=== PATIENT | female | born 1990 | race Caucasian/White ===

== ENCOUNTER 2024-03-09 19:22 | Emergency (ER) | payer MEDICAID, SELFPAY ==
[2024-03-09] VITALS (9 sets, daily range): BP systolic 123–140; BP diastolic 73–75; PULSE 89–115; RESP 15–18; TEMP 36.9; O2SAT 96–98; BMI 26.6
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
[2024-03-09] MEDS: ondansetron 2 mg/ML SDV 2 mL 4 MG IVP (19:54)
[2024-03-09] MEDS: HYDROmorphone 1 mg/mL INJ 1 mL IVP ×2 (19:55→22:08)
[2024-03-09] MEDS: sodium chloride 0.9% 1,000 ML 999 ML IV (19:56)
[2024-03-09 20:15] LABS: INR 1.07 (0.8-1.2); Partial Thromboplastin Time 22.4 SECONDS (23.9-36.7)
[2024-03-09 20:20] LABS: HCG, Serum Qual Negative (Negative)
[2024-03-09 20:21] LABS: Alanine Aminotransferase 30 U/L (0-33); Albumin Level 4.2 g/dL (3.5-5.2); Alcohol Level 74 mg/dL (0-10); Alkaline Phosphatase 65 U/L (35-105); Aspartate Amino Transferase 59 U/L (0-32); Blood Urea Nitrogen 16 mg/dL (6-20); Calcium 8.1 mg/dL (8.5-10.5); Carbon Dioxide 21 mmol/L (22-29); Chloride 107 mmol/L (98-107); Creatine Phosphokinase 144 U/L (26-192); Creatinine Clr Calc Pharmacy 90.4052; Glucose 115 mg/dL (65-115); Osmolality Calculated 294 mOsm/kg (285-295); Sodium 141 mmol/L (136-145); Total Bilirubin 1.1 mg/dL (0.15-1.2); Total Protein 7.2 g/dL (6.6-8.7)
[2024-03-09 20:32] LABS: Basophils # 0.1 10^3/uL (0.0-0.1); Basophils % 0.4 %; Eosinophils % 0.1 %; Hematocrit 34.5 % (36-47); Lymphocytes # 1.7 10^3/uL (0.8-4.8); Lymphocytes % 8.7 %; Mean Corpuscular HGB Conc 31.9 g/dL (30-55); Mean Corpuscular Hemoglobin 26.4 pg (27-33); Mean Corpuscular Volume 82.9 fl (85-98); Monocytes % 5.5 %; Neutrophils # 16.05 10^3/uL (1.8-7.7); Neutrophils % 84.1 %; Nucleated Red Blood Cells % 0 %; Platelet Count 259 10^3/cmm (157-399); Red Blood Count 4.16 10^6/uL (3.85-5.65); Red Cell Distribution Width 13.4 % (12.1-15.1); White Blood Count 19.07 10^3/uL (3.29-11.43)
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
[2024-03-09] MEDS: iohexol 350 mg/mL 500 mL Btl (per mL) IV (20:47)
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
[2024-03-09 21:33] LABS: Add Urine Microscopic? YES; Bacteria Urine TRACE /hpf; Bilirubin Urine Neg (Negative); Blood Urine Trace (Negative); Glucose Urine UA Norm (Normal); Ketones Urine 1+ (Negative); Leukocyte Esterase Urine Negative (Negative); Mucus Urine 1+ /hpf; Nitrate Urine Negative (Negative); Protein Urine Trace (Negative); RBC Urine 0-4 /hpf (0-2); Squamous Epithelial Cell Urine 0-4 /hpf (0-5); Urine Appearance Clear (CLEAR); Urine Color Colorless (Yellow); Urobilinogen Urine Neg (Negative); WBC Urine 0-4 /hpf (0-5); pH Urine 5 (5-7)
[2024-03-09 21:34] LABS: Amorphous Sediment Urine TRACE /hpf; Coarse Granular Casts Urine 0-4 /lpf; Hyaline Casts Urine 0-4 /lpf
[2024-03-09] MEDS: oxyCODONE-APAP 5-325 mg Tablet 2 TAB PO (22:57)
== END 2024-03-09 23:19 | disposition home or self-care (01) ==
PROVIDERS: Emergency Provider Emergency Medicine; PCP Nurse Practitioner Family
DX: S22.078A Other fracture of T9-T10 vertebra, initial encounter for closed fracture (principal); V86.95XA Unspecified occupant of 3- or 4- wheeled all-terrain vehicle (ATV) injured in nontraffic accident, initial encounter
CPT/HCPCS: 36415; 70450; 71260; 72125; 73080; 74177; 80053; 80307; 81001; 82550; 84703; 85025; 85610; 85730; 96374; 96375; 96376; 99285; J1170; J2405; J7030; Q9967

== ENCOUNTER → 2024-03-13 12:33 | Outpatient (BNVA) | payer SELFPAY | PROVIDERS: PCP Nurse Practitioner Family; Visit Provider Nurse Practitioner Family | DX: D72.829 Elevated white blood cell count, unspecified (principal); R51.9 Headache, unspecified; R60.9 Edema, unspecified; R60.1 Generalized edema; G44.219 Episodic tension-type headache, not intractable | CPT/HCPCS: 80053; 85025 ==

== ENCOUNTER → 2024-05-01 13:09 | Outpatient (BNVA) | payer MEDICAID, SELFPAY | PROVIDERS: PCP Nurse Practitioner Family; Visit Provider Nurse Practitioner Family | DX: N39.0 Urinary tract infection, site not specified (principal) | CPT/HCPCS: 87491; 87591 ==